=== PATIENT | female | born 1990 | race African-American/Black ===

== ENCOUNTER 2024-08-19 10:21 | Emergency (ER) | payer MEDICAID ==
[~2024-08-19] VITALS: Ht 162.6 cm; Wt 90.0 kg
[2024-08-19 10:37] VITALS: BP 135/86; PULSE 104; RESP 18; TEMP 97.9; O2SAT 100
[2024-08-19 11:07] LABS: BASOPHILS % (AUTO) 0.8 % (0.0-2.0); EOSINOPHILS % (AUTO) 5.4 % (1.0-6.0); HEMATOCRIT 41.7 % (36-46); HEMOGLOBIN 13.6 g/dL (12.0-16.0); LYMPHOCYTES % (AUTO) 42.5 % (22.0-44.0); MEAN CORPUSCULAR HEMOGLOBIN 27.4 pg (26.0-34.0); MEAN CORPUSCULAR HGB CONC 32.6 G/dL (31.0-37.0); MEAN CORPUSCULAR VOLUME 84 fL (80-100); MONOCYTES # (AUTO) 0.6 K/uL (0.1-1.0); MONOCYTES % (AUTO) 6.6 % (2.0-9.0); NEUTROPHILS # (AUTO) 4.2 K/uL (1.8-7.7); NEUTROPHILS % (AUTO) 44.7 % (40.0-70.0); PLATELET COUNT (AUTO) 375 K/uL (150-450); RED BLOOD CELL COUNT(AUTO) 4.96 MIL/uL (4.00-5.20); RED CELL DISTRIBUTION WIDTH 15.5 % (11.5-14.5); WHITE BLOOD COUNT (AUTO) 9.5 K/uL (4.5-11.0)
[2024-08-19] MEDS: ACETAMINOPHEN 325 MG TABLET PO ONE (12:54)
== END 2024-08-19 13:48 | disposition home or self-care (01) ==
LOC: EMS 10:31
DX: N93.9 Abnormal uterine and vaginal bleeding, unspecified (principal)
CPT/HCPCS: 76801; 84702; 85025; 99284

== ENCOUNTER 2025-05-07 12:02 | Emergency (ER) | payer MEDICAID ==
[~2025-05-07] VITALS: Ht 157.5 cm; Wt 78.2 kg
[2025-05-07 12:03] VITALS: BP 145/88; PULSE 102; RESP 18; TEMP 98; O2SAT 99
== END 2025-05-07 12:40 | disposition left against medical advice (07) ==
LOC: EMS 12:03
DX: T74.21XA Adult sexual abuse, confirmed, initial encounter (principal); Z53.21 Procedure and treatment not carried out due to patient leaving prior to being seen by health care provider